=== PATIENT | female | born 2000 | race Caucasian/White ===

== ENCOUNTER 2023-01-06 13:17 | Outpatient (RCR) | payer OTHER, SELFPAY ==
--- NOTE | 2023-01-06 15:30 | OT.OP.EVAL ---
Visit Care Team Role Provider Type CHIN Perez Attending Provider Non-Staff Family Provider Primary Care Provider Referring Provider Specialty: Family Practice Address: [address], [place], [address] Email: Occupational Therapy Initial Evaluation OT Outpatient Adult Evaluation Start: 01/07/23 07:28 Freq: Status: Active Protocol: Document 01/06/23 15:30 AMS (Rec: 01/07/23 08:03 AMS [id number]) General Information - Adult Plan of Care Dates 01/06/23 - Insurance Information Prime Treatment Setting Outpatient Care Note Type Initial Evaluation Identification Confirmed Yes Identification Confirmed By Self Goals Treatment Initiated HEP. Fdc Goals 1. Patient will be modified independent with distal UE home exercise program utilizing provided written and visual instructions from therapist. 2. Patient will be able to verbalize 100% understanding of joint protection principles referencing handout as needed . 3. Patient will be able to verbally identify 2 to 3 different conservative methods for pain management (e.g., ice, heat, contrast baths). Assessment/Plan Treatment Assessment Sheila is a 22 year-old right hand dominant female referred to outpatient OT by PCP secondary to bilateral wrist pain, R > L, and weakness with no reported changes w/ bracing. Medical history significant for depression; report of 3-view x-ray taken of R wrist w/ no significant findings. 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 Her has been assisting her w/ the care of the 2 children when able to do so (based on work schedule/availability). Sheila has been wearing an over-the- counter R distal UE brace with reported rigid volar and thumb components. Brace was not brought to initial evaluation. She reports wearing the brace at night and intermittently throughout the day; she states noted discomfort upon removal of the brace. She denies pain/ discomfort waking her up at night. She has been prescribed topical medication and has been taking Ibuprofen for pain management; she reports difficulty heating or icing d/ t busy schedule. Discomfort is reported w/ g/h (self-care, including use of hair ceramic mold designer, brushing hair, doing make-up), shuffling cards, caring for her 2 children, baking, cooking, painting and driving ( particularly for long distances). She has been avoiding UB lifting d/t discomfort. Indication of 3 out of 10 on Pain Assessment Grid relative to bilateral shoulders and distal volar surfaces of forearms; indication of 6/10 on Pain Assessment Grid relative to bilateral dorsal thumbs/dorsal 3rd digits. QuickDASH UE Outcome Measure Score = 43.18. B wrist ROM WNL bilaterally in all directions. Wrist MMT all directions bilaterally 5/5 . However, pain reported w/ resisted R wrist flexion ( volar surface of forearm - prox wrist) and resisted L wrist RD (ulnar side prox wrist). Avg 51# of force w/ R extruding department supervisor (compared to 20-24 y.o. females 70.4 +/- 14.5 = > 1 SD below the mean) and L extruding department supervisor w/ dynamometer II extruding department supervisor strength testing (compared to 20-24 y.o . females 61.0 +/- 13.1 = within 1 SD below the mean); avg 15.0# of force w/ bilateral lateral pinch ( compared to 20-24 y.o. RIGHT females 17.6 +/- 2.0 = > 1 SD below the mean and compared to 20-24 y.o. LEFT females 16.2 +/- 2.1 = within 1 SD below the mean); avg 10.0# of force w/ bilateral tip pinch ( compared to 20-24 y.o. RIGHT females 11.1 +/- 2.1 = within 1 SD below the mean and compared to 20-24 y.o. LEFT females 10.5 +/- 1.7 = within 1 SD below the mean); avg 10.5 # of force w/ R 3-jaw pinch ( compared to 20-24 y.o. females 17.2 +/- 2.3 = > 2 SD below the mean) and 10.0# of force w / L 3-jaw pinch (compared to 20-24 y.o. females 16.3 +/- 2. 8 = > 2 SD below the mean). No nonverbal signs of pain/ discomfort w/ digit/extruding department supervisor testing; no avoidance noted. Report of decreased activity participation; beginning to modify harvesting contractor to support task completion (if is not available to assist). Report of numbness bilaterally ( shoulder --> hands). Able to tuck thumbs w/ wrist UD bilaterally w/ c/o discomfort of volar wrists (primarily R). No observable guarding when instructed w/ movement. (-) curling of fingers into flexion patterns at rest w/ hands positioned on TT. Mild tightness of bilateral thumb adductors. Some R intrinsic tightness. Patient's wrist range of motion is WNL bilaterally; wrist strength is good in all directions bilaterally. However, she does have some intrinsic tightness of the R hand and she did demonstrate some deficits w/ finger/extruding department supervisor strength testing; she also reports numbness shoulder --> distal hands bilaterally; she also presents with pain that is impacting her daily life and her ability to engage in meaningful activities of daily living, including baking, cooking, painting, and caring for her 2 children. Thus, outpatient OT recommended to address the weakness, establish HEP, patient education, identify modification/AE that may be beneficial, and further assess upper extremities/symptoms impacting daily life. Home Exercise Program Instructed in passive distal UE stretches; instructed in wrist/digit flexor stretch and wrist/digit extensor stretch. Reviewed alternatives to passive self-ROM, including use of TT and/or wall primarily w/ wrist/digit flexor stretch. Reviewed passive TT wrist UD stretch based on pain c/o w/ strength testing. Instructed in hook fist w/ addition of passive stretch (L assisting R to stretch). Visual/written instructions to be scanned into EMR when front counter attendant able to do so. Length of treatment (weeks) 6 Plan of Care Start Date 01/06/23 Plan of Care End Date 02/17/23 Treatment Frequency Once a Week Therapeutic Contents Active Range of Motion, Adaptive Equipment Education, Client Education,Functional Activities,Home Exercise Program,Joint Protection, Manual Therapy,Education, Neurodevelopment Treatment, Neuromuscular Re-Education, Self-Care,Stretching/ Flexibility Activities, Therapeutic Activities, Therapeutic Exercises, Modalities Modalities As Needed,As Prescribed Additional Types of Modalities Heat/Ice/Contrast Baths/ Ultrasound/Kinesiotaping/ Iontophoresis
--- NOTE | 2023-02-21 12:02 | OT.OP.DC ---
Visit Care Team Role Provider Type CHIN Perez Attending Provider Non-Staff Family Provider Primary Care Provider Referring Provider Address: [address], [place], [address] Email: OT Outpatient OT Outpatient Adult Evaluation Start: 01/07/23 07:28 Freq: Status: Active Protocol: Document 01/06/23 15:30 AMS (Rec: 01/07/23 08:03 AMS [id number]) General Information - Adult Visit Information Plan of Care Dates 01/06/23 - Insurance Information [facility] Setting Treatment Setting Outpatient Care Visit Type Note Type Initial Evaluation Identification Identification Confirmed Yes Identification Confirmed By Self Goals Treatment Treatment Initiated HEP. Customs Port Director Goals Residential Goals 1. Patient will be modified independent with distal UE home exercise program utilizing provided written and visual instructions from therapist. 2. Patient will be able to verbalize 100% understanding of joint protection principles referencing handout as needed . 3. Patient will be able to verbally identify 2 to 3 different conservative methods for pain management (e.g., ice, heat, contrast baths). Assessment/Plan Assessment Treatment Assessment Sheila is a 22 year-old right hand dominant female referred to outpatient OT by PCP secondary to bilateral wrist pain, R > L, and weakness with no reported changes w/ bracing. Medical history significant for depression; report of 3-view x-ray taken of R wrist w/ no significant findings. 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 Her has been assisting her w/ the care of the 2 children when able to do so (based on work schedule/availability). Sheila has been wearing an over-the- counter R distal UE brace with reported rigid volar and thumb components. Brace was not brought to initial evaluation. She reports wearing the brace at night and intermittently throughout the day; she states noted discomfort upon removal of the brace. She denies pain/ discomfort waking her up at night. She has been prescribed topical medication and has been taking Ibuprofen for pain management; she reports difficulty heating or icing d/ t busy schedule. Discomfort is reported w/ g/h (self-care, including use of hair database developer, brushing hair, doing make-up), shuffling cards, caring for her 2 children, baking, cooking, painting and driving ( particularly for long distances). She has been avoiding UB lifting d/t discomfort. Indication of 3 out of 10 on Pain Assessment Grid relative to bilateral shoulders and distal volar surfaces of forearms; indication of 6/10 on Pain Assessment Grid relative to bilateral dorsal thumbs/dorsal 3rd digits. QuickDASH UE Outcome Measure Score = 43.18. B wrist ROM WNL bilaterally in all directions. Wrist MMT all directions bilaterally 5/5 . However, pain reported w/ resisted R wrist flexion ( volar surface of forearm - prox wrist) and resisted L wrist RD (ulnar side prox wrist). Avg 51# of force w/ R pipe fitter ammonia (compared to 20-24 y.o. females 70.4 +/- 14.5 = > 1 SD below the mean) and L pipe fitter ammonia w/ dynamometer II pipe fitter ammonia strength testing (compared to 20-24 y.o . females 61.0 +/- 13.1 = within 1 SD below the mean); avg 15.0# of force w/ bilateral lateral pinch ( compared to 20-24 y.o. RIGHT females 17.6 +/- 2.0 = > 1 SD below the mean and compared to 20-24 y.o. LEFT females 16.2 +/- 2.1 = within 1 SD below the mean); avg 10.0# of force w/ bilateral tip pinch ( compared to 20-24 y.o. RIGHT females 11.1 +/- 2.1 = within 1 SD below the mean and compared to 20-24 y.o. LEFT females 10.5 +/- 1.7 = within 1 SD below the mean); avg 10.5 # of force w/ R 3-jaw pinch ( compared to 20-24 y.o. females 17.2 +/- 2.3 = > 2 SD below the mean) and 10.0# of force w / L 3-jaw pinch (compared to 20-24 y.o. females 16.3 +/- 2. 8 = > 2 SD below the mean). No nonverbal signs of pain/ discomfort w/ digit/pipe fitter ammonia testing; no avoidance noted. Report of decreased activity participation; beginning to modify professor of apologetics to support task completion (if is not available to assist). Report of numbness bilaterally ( shoulder --> hands). Able to tuck thumbs w/ wrist UD bilaterally w/ c/o discomfort of volar wrists (primarily R). No observable guarding when instructed w/ movement. (-) curling of fingers into flexion patterns at rest w/ hands positioned on TT. Mild tightness of bilateral thumb adductors. Some R intrinsic tightness. Patient's wrist range of motion is WNL bilaterally; wrist strength is good in all directions bilaterally. However, she does have some intrinsic tightness of the R hand and she did demonstrate some deficits w/ finger/pipe fitter ammonia strength testing; she also reports numbness shoulder --> distal hands bilaterally; she also presents with pain that is impacting her daily life and her ability to engage in meaningful activities of daily living, including baking, cooking, painting, and caring for her 2 children. Thus, outpatient OT recommended to address the weakness, establish HEP, patient education, identify modification/AE that may be beneficial, and further assess upper extremities/symptoms impacting daily life. Home Exercise Program Instructed in passive distal UE stretches; instructed in wrist/digit flexor stretch and wrist/digit extensor stretch. Reviewed alternatives to passive self-ROM, including use of TT and/or wall primarily w/ wrist/digit flexor stretch. Reviewed passive TT wrist UD stretch based on pain c/o w/ strength testing. Instructed in hook fist w/ addition of passive stretch (L assisting R to stretch). Visual/written instructions to be scanned into EMR when front desk auxiliary able to do so. Plan Length of treatment (weeks) 6 Plan of Care Start Date 01/06/23 Plan of Care End Date 02/17/23 Treatment Frequency Once a Week Therapeutic Contents Active Range of Motion, Adaptive Equipment Education, Client Education,Functional Activities,Home Exercise Program,Joint Protection, Manual Therapy,Education, Neurodevelopment Treatment, Neuromuscular Re-Education, Self-Care,Stretching/ Flexibility Activities, Therapeutic Activities, Therapeutic Exercises, Modalities Modalities As Needed,As Prescribed Additional Types of Modalities Heat/Ice/Contrast Baths/ Ultrasound/Kinesiotaping/ Iontophoresis Functional Wrist/Hand Scan Hand Side Sensory Assessment Sensory Profile2 OT Outpatient Treatment Note - Adult Start: 01/07/23 07:28 Freq: Status: Active Protocol: Document 02/21/23 12:00 AMS (Rec: 02/21/23 12:02 [facility] [id number]) OT Outpatient Adult Treatment Note Visit Information Plan of Care Dates 01/06/23 - 02/17/23 Setting Treatment Setting Outpatient Care Visit Type Note Type Discharge Summary - Subjective Observations Sheila has not been seen in the outpatient setting since date of initial evaluation (01/06/23 ); POC on 02/17/23. Thus, recommend d/c from outpatient OT at this time and therapist to re-evaluate as deemed appropriate by PCP. - Objective Residential Goals ALL GOALS D/C 02/21/23 = 1. Patient will be modified independent with distal UE home exercise program utilizing provided written and visual instructions from therapist. 2. Patient will be able to verbalize 100% understanding of joint protection principles referencing handout as needed . 3. Patient will be able to verbally identify 2 to 3 different conservative methods for pain management (e.g., ice, heat, contrast baths). - - Assessment Assessment of Improvement Sheila has not been seen in the outpatient setting since date of initial evaluation (01/06/23 ); POC on 02/17/23. Thus, recommend d/c from outpatient OT at this time and therapist to re-evaluate as deemed appropriate by PCP. - Plan Therapy Recommendations Discharge from Occupational Therapy
== END 2023-02-21 15:09 | disposition home or self-care (01) ==
LOC: OT 13:17
PROVIDERS: Family Provider Nurse Practitioner Family; PCP Nurse Practitioner Family; Referring Provider Nurse Practitioner Family; Visit Provider Nurse Practitioner Family
DX: M25.531 Pain in right wrist (principal)
CPT/HCPCS: 97110; 97165

== ENCOUNTER 2024-01-16 19:21 | Emergency (ER) | payer OTHER, SELFPAY ==
[2024-01-16 19:28] VITALS: BP 121/70; PULSE 89; RESP 18; TEMP 36.8; O2SAT 99; BMI 30.9
--- NOTE | 2024-01-16 19:37 | DI.RAD.S_ITS ---
PROCEDURE: XR ANKLE LT MIN 3V INDICATIONS: fell, pain TECHNIQUE: 3 views of the ankle were acquired. COMPARISON: None. FINDINGS: Bones: No fractures or dislocations. Ankle mortise is normally aligned. No suspicious bony lesions. Soft tissues: No tibiotalar joint effusion. Achilles tendon appears normal. IMPRESSION: No acute bony abnormality or significant effusion. Dictated by: Digna Perez M.D. on 01/16/2024 at 20:41 Approved by: Digna Perez M.D. on 01/16/2024 at 20:43
--- NOTE | 2024-01-16 19:37 | DI.RAD.S_ITS ---
PROCEDURE: XR ANKLE RT MIN 3V INDICATIONS: fell, pain TECHNIQUE: 3 views of the ankle were acquired. COMPARISON: None. FINDINGS: Bones: No fractures or dislocations. Ankle mortise is normally aligned. No suspicious bony lesions. Soft tissues: No tibiotalar joint effusion. Achilles tendon appears normal. IMPRESSION: No acute bony abnormality or significant effusion. Dictated by: Digna Perez M.D. on 01/16/2024 at 20:43 Approved by: Digna Perez M.D. on 01/16/2024 at 20:43
--- NOTE | 2024-01-16 22:15 | ED_ITS ---
HPI - Extremity Injury (Lower) General Chief Complaint: Extremity Injury, Lower Stated Complaint: ankle swelling and bruising painfull Time Seen by Provider: 01/16/24 22:00 Source: patient Mode of arrival: Wheelchair History of Present Illness HPI Narrative: 23-year-old female who is here for evaluation of bilateral ankle pain however left greater than right with bruising of the left ankle. Patient states she tripped and fell down the last couple stairs at her house while she was carrying laundry. Is able to bear weight but has had increasing pain specifically in her left ankle since the event. Did not hit her head. No other injuries. She has been seen at an outside facility several days ago for similar symptoms. Review of Systems Musculoskeletal Musculoskeletal: Reports system reviewed and no additional complaints, except as documented Integumentary/Breasts Skin/Breast: Reports system reviewed and no additional complaints, except as documented Neurologic Neurologic: Reports system reviewed and no additional complaints, except as docu mented Patient History Social History Smoking Status: Former smoker Smoking Status: Former smoker alcohol intake frequency: holidays/special occasions only Substance Use Type: does not use Exam Initial Vital Signs Initial Vital Signs: Vital Signs Temperature 98.3 F 01/16/24 19:28 Pulse Rate 89 01/16/24 19:28 Respiratory Rate 18 01/16/24 19:28 Blood Pressure 121/70 01/16/24 19:28 Pulse Oximetry 99 01/16/24 19:28 Oxygen Delivery Method Room Air 01/16/24 19:28 Skin Other: Patient with ecchymosis and bruising on the dorsum of the left foot along the lateral aspect of the left foot with swelling along the lateral malleolus. Neuro Sensory Exam: no sensory deficits noted Extrem Other: Tender to palpation of the left lateral malleolus in the dorsum of the foot. Course Orders Ordered: ED Orders 01/16/24 19:37 XR ankle LT min 3V Stat XR ankle RT min 3V Stat Vital Signs Vital signs: Vital Signs - 8 hr 01/16/24 22:29 Pulse Rate 82 Respiratory Rate 16 Blood Pressure 124/63 Pulse Oximetry 99 Oxygen Delivery Method Room Air MDM - Extremity Injury (Lower) Imaging Data Extremity x-ray #1: Radiologist's Impression: PROCEDURE: XR ANKLE LT MIN 3V INDICATIONS: fell, pain TECHNIQUE: 3 views of the ankle were acquired. COMPARISON: None. FINDINGS: Bones: No fractures or dislocations. Ankle mortise is normally aligned. No suspicious bony lesions. Soft tissues: No tibiotalar joint effusion. Achilles tendon appears normal. IMPRESSION: No acute bony abnormality or significant effusion. Extremity x-ray #2: Radiologist's Impression: PROCEDURE: XR ANKLE RT MIN 3V INDICATIONS: fell, pain TECHNIQUE: 3 views of the ankle were acquired. COMPARISON: None. FINDINGS: Bones: No fractures or dislocations. Ankle mortise is normally aligned. No suspicious bony lesions. Soft tissues: No tibiotalar joint effusion. Achilles tendon appears normal. IMPRESSION: No acute bony abnormality or significant effusion. MDM Narrative Medical decision making narrative: Neurovascularly intact. No fractures or dislocations noted on the x-rays. Does have bruising on the left ankle which would be consistent with an ankle sprain. She has a ankle brace already. Discuss this with her. No further radiologic studies needed. Recommended keeping her ankle elevated and using ice. She was given return precautions. She expressed understanding and agreement. Discharge Plan Departure Patient Disposition: Home Clinical Impression: Ankle sprain and strain Instructions: DI for Ankle Sprain, How To Perform RICE (Rest, Ice, Compress, Elevate) Activity Restrictions/Additional Instructions: There were no fractures noted on the x-rays. It is important that you keep your foot elevated and use ice. I suspect that your symptoms are going to improve over the next several days. Contact your primary doctor for follow-up. Return to the emergency department for new symptoms. Referrals: Gerson Scott ARNP [Primary Care Provider] - Stand Alone Forms: Patient Portal/API, Work Release Note
[2024-01-16 22:29] VITALS: BP 124/63; PULSE 82; RESP 16; O2SAT 99
== END 2024-01-16 22:29 | disposition home or self-care (01) ==
PROVIDERS: Emergency Provider Emergency Medicine; Family Provider Nurse Practitioner Family; PCP Nurse Practitioner Family
DX: S93.402A Sprain of unspecified ligament of left ankle, initial encounter (principal); S96.912A Strain of unspecified muscle and tendon at ankle and foot level, left foot, initial encounter; M25.571 Pain in right ankle and joints of right foot; W01.0XXA Fall on same level from slipping, tripping and stumbling without subsequent striking against object, initial encounter
CPT/HCPCS: 73610; 99281; 99283